=== PATIENT | male | born 1940 | race Caucasian/White ===

== ENCOUNTER → 2018-01-11 | Outpatient (CLI) | payer MEDICARE, OTHER ==
[~2018-01-11] MED LIST: AMLO10 PO; HYDCHL50 PO; TERA5 PO; Vitamin D2000 UNIT PO
== END | disposition home or self-care (01) ==
LOC: LAB SHORT 13:28 → PLD 13:28
DX: D22.5 Melanocytic nevi of trunk (principal); L57.0 Actinic keratosis
CPT/HCPCS: 88305

== ENCOUNTER → 2019-09-19 | Outpatient (CLI) | payer MEDICARE, OTHER ==
[~2019-09-19] MED LIST changes: +LOSA25 PO; +MICROZIDE12.5 M2 PO
== END | disposition home or self-care (01) ==
LOC: PLD 10:53 → LAB SHORT 10:53
DX: D48.5 Neoplasm of uncertain behavior of skin (principal)
CPT/HCPCS: 88305

== ENCOUNTER 2019-10-30 13:05 | Day surgery (SDC) | payer MEDICARE, OTHER ==
[~2019-10-30] VITALS: Ht 185.4 cm; Wt 80.2 kg
[~2019-10-30 13:05] MED LIST changes: -LOSA25 PO
[2019-10-30] MEDS ORDERED: LOSA25 PO (13:38)
--- NOTE | 2019-10-30 14:00 | NUR ---
10/30/[address] AWARE OF PRE OP BR READINGS. NO ORDERS AT THIS TIME.
== END 2019-10-30 15:02 | disposition home or self-care (01) ==
LOC: ORSCSDS 13:05
PROVIDERS: Internal Medicine Gastroenterology
PROC: 0DBK8ZX Excision of Ascending Colon, Via Natural or Artificial Opening Endoscopic, Diagnostic (ICD-10-PCS; principal; 2019-10-30 14:30)
PROC: 0DBL8ZX Excision of Transverse Colon, Via Natural or Artificial Opening Endoscopic, Diagnostic (ICD-10-PCS; principal; 2019-10-30 14:30)
DX: Z12.11 Encounter for screening for malignant neoplasm of colon (principal); Z86.010 Personal history of colon polyps; Z85.038 Personal history of other malignant neoplasm of large intestine; D12.3 Benign neoplasm of transverse colon; D12.2 Benign neoplasm of ascending colon; Z87.891 Personal history of nicotine dependence; I10 Essential (primary) hypertension; E78.5 Hyperlipidemia, unspecified; Z79.899 Other long term (current) drug therapy
CPT/HCPCS: 88305; J2704; J7120

== ENCOUNTER → 2019-12-26 | Outpatient (CLI) | payer MEDICARE, OTHER ==
[~2019-12-26] MED LIST changes: +LOSA25 PO
== END | disposition home or self-care (01) ==
LOC: LAB SHORT 11:05 → PLD 11:05
DX: D22.39 Melanocytic nevi of other parts of face (principal)
CPT/HCPCS: 88305

== ENCOUNTER 2022-05-18 06:11 | Day surgery (SDC) | payer MEDICARE, OTHER ==
[~2022-05-18] VITALS: Ht 182.9 cm; Wt 86.0 kg
[~2022-05-18 06:11] MED LIST changes: +ACET500 PO; +ATOR40TA PO; +CLOP75 PO; +TAMS.4ER PO
== END 2022-05-18 23:42 | disposition home or self-care (01) ==
LOC: MHTC 06:11
DX: I44.1 Atrioventricular block, second degree (principal); I10 Essential (primary) hypertension; E78.5 Hyperlipidemia, unspecified; E87.1 Hypo-osmolality and hyponatremia; Z87.891 Personal history of nicotine dependence; I65.21 Occlusion and stenosis of right carotid artery; Z87.898 Personal history of other specified conditions; Z88.8 Allergy status to other drugs, medicaments and biological substances
CPT/HCPCS: 33285; C1764